=== PATIENT | male | born 1975 | race Caucasian/White ===

== ENCOUNTER 2024-03-25 14:52 | Emergency (ER) | payer SELFPAY ==
[2024-03-25] MEDS ORDERED: Tetracaine 0.5% PF 4 ML BOT ONE (14:55)
[2024-03-25] MEDS ORDERED: Fluorescein Opthalmic Strip ONE (14:55)
== END 2024-03-25 15:20 | disposition home or self-care (01) ==
LOC: NAV ERS 14:52
DX: T15.02XA Foreign body in cornea, left eye, initial encounter (principal); F17.210 Nicotine dependence, cigarettes, uncomplicated; W44.8XXA Other foreign body entering into or through a natural orifice, initial encounter; Y93.89 Activity, other specified
CPT/HCPCS: 65220; 99283